=== PATIENT | male | born 1980 | race Caucasian/White ===

== ENCOUNTER 2022-10-04 19:59 | Emergency (ER) | payer OTHER, MEDICAID ==
[~2022-10-04] VITALS: Ht 177.8 cm; Wt 118.0 kg
[~2022-10-04 19:59] MED LIST: ATIVAN; PROTONIX
[2022-10-04 20:09] VITALS: O2SAT 98
[2022-10-04] MEDS ORDERED: ONDANSETRON HCL 4MG/2ML INJ IV STA (20:35)
[2022-10-04] MEDS ORDERED: SODIUM CHLORIDE 0.9% 1,000 ML IV ONE (20:45)
[2022-10-04 20:48] LABS: BASOPHILS % 0.4 % (0.0-2.0); EOSINOPHILS % 1.7 % (0.0-5.0); HEMATOCRIT. 43.9 % (42.0-52.0); HEMOGLOBIN. 15.1 g/dL (14.0-18.0); LYMPHOCYTES % 35.5 % (20.0-50.0); MEAN CORPUSCULAR HEMOGLOBIN 27.6 pg (28.0-32.0); MEAN CORPUSCULAR VOLUME 80.1 fL (80.0-94.0); MEAN PLATELET VOLUME 8.6 fl (7.4-10.4); MONOCYTES % 5.3 % (2.0-8.0); NEUTROPHILS % 57.1 % (40.0-76.0); PLATELET 226 x1000/uL (130-400); RED BLOOD CELL COUNT 5.48 mill/uL (4.7-6.1); RED CELL DISTRIBUTION WIDTH 14.4 % (11.6-14.6)
[2022-10-04 20:57] LABS: CHLORIDE 94 mEq/L (98-107)
[2022-10-04 20:58] LABS: PROTHROMBIN TIME 10.3 sec (9.6-11.0)
[2022-10-04 21:12] LABS: BETA HYDROXYBUTYRATE 0.1 mMol/L (0.0-0.3); ETHANOL BLOOD < 10 mg/dL (-10)
[2022-10-04] MEDS ORDERED: SODIUM CHLORIDE 0.9% 1000ML BAG (SEPSIS BOLUS) IV ONE (21:30)
[2022-10-04] MEDS ORDERED: INSULIN REGULAR (HUMULIN R) 300UNITS/3ML VIAL SUBCUT ONE (21:30)
[2022-10-04] MEDS ORDERED: CEFTRIAXONE 1GM PREMIX 50 ML IV ONE (21:30)
[2022-10-04] MEDS ORDERED: KETOROLAC 30MG/ML VIAL IV ONE (22:00)
[2022-10-04 22:02] LABS: CLARITY URINE CLEAR (CLEAR); COLOR URINE YELLOW (YELLOW); KETONES URINE NEGATIVE (NEGATIVE); LEUKOCYTE ESTERASE URINE NEGATIVE (NEGATIVE); NITRITE URINE NEGATIVE (NEGATIVE); OCCULT BLOOD URINE NEGATIVE (NEGATIVE); PROTEIN URINE NEGATIVE (NEGATIVE); SPECIFIC GRAVITY URINE 1.044 (1.005-1.030); UROBILINOGEN URINE 0.2 E.U./dL (0.2-1.0)
[2022-10-04 22:16] LABS: *AMPHETAMINES SCREEN URINE NEGATIVE (NEGATIVE); *BARBITURATES SCREEN URINE NEGATIVE (NEGATIVE); *BENZODIAZEPINES SCREEN URINE NEGATIVE (NEGATIVE); *COCAINE SCREEN URINE NEGATIVE (NEGATIVE); CANNABINOID URINE SCREEN PRESUMTIVE POSITIVE (NEGATIVE); METHADONE URINE SCREEN NEGATIVE (NEGATIVE); OPIATES URINE SCREEN NEGATIVE (NEGATIVE); PHENCYCLIDINE URINE SCREEN NEGATIVE (NEGATIVE)
[2022-10-04 23:17] LABS: BG BASE EXCESS -1.5 mmol/L (-2.0-2.0); BG CARBOXYHEMOGLOBIN 1.5 % (0.5-1.5); BG DEOXYHEMOGLOBIN 4.7 % (0.0-5.0); BG FRACTION INSPIRED OXYGEN 21; BG HCO3 ACT 23.9 mmol/L (22.0-26.0); BG METHEMOGLOBIN 0.1 % (0.0-1.5); BG OXYGEN SATURATION 95.2 % (92.0-98.5); BG OXYHEMOGLOBIN 93.7 % (94.0-97.0); BG PCO2 42.5 mmHg (35.0-45.0); BG PH 7.367 (7.350-7.450); BG PO2 80.6 mmHg (75.0-100.0); BG SAMPLE SITE RIGHT RADIAL; BG TOTAL HEMOGLOBIN 13.9 g/dL (12.0-18.0); BG VENT MODE ROOM AIR
[2022-10-04] MEDS ORDERED: HYDROCODONE/ACETAMINOPHEN 5/325MG TABLET PO ONE (23:30)
[2022-10-05 03:56] VITALS: BP 130/56; PULSE 72; RESP 18; TEMP 98
== END 2022-10-05 03:55 | disposition short-term general hospital (02) ==
LOC: ER 19:59
DX: A41.9 Sepsis, unspecified organism (principal); R65.20 Severe sepsis without septic shock; E11.65 Type 2 diabetes mellitus with hyperglycemia; E86.0 Dehydration; F12.10 Cannabis abuse, uncomplicated; Z20.822 Contact with and (suspected) exposure to COVID-19; Z88.5 Allergy status to narcotic agent; Z88.8 Allergy status to other drugs, medicaments and biological substances
CPT/HCPCS: 80053; 80305; 81003; 82010; 80320; 82962 ×2; 83605; 83690; 85025; 85610; 87040; 84484; 36415; 84145; 71045; 82805; 82375; 82803; 93005; 96361; 96365; 96372; 96375; 99291; 87426; 36600; J0696; J1815; J1885; J2405; J7030; C9803; Z7610; G0480